=== PATIENT | female | born 1960 ===

== ENCOUNTER 2018-11-20 09:55 | Emergency (ER) | payer OTHER ==
[2018-11-20 10:14] VITALS: RESP 20; O2SAT 99
--- NOTE | 2018-11-20 10:28 | C.PDOC ---
History Of Present Illness 58 year old female presents to the ED complaining of increasing left sided "rib" pain status post slipping 2 weeks ago. Pt notes she was lifting her laundry, slipped and hit the wall with the left side of her chest. Reports the pain is worse with movement, specifically when moving the left arm. Notes no pain without movement. States she has been taking Aleve with complete transient relief. Denies any head injury, sob, leg swelling, back pain, changes in sensation, lower extremity weakness or pain, numbness, urinary symptoms, or any other associated complaints. PMD: Dr. Fabian Ojeda Time Seen by Provider: 11/20/18 10:15 Chief Complaint (Nursing): Back Pain History Per: Patient History/Exam Limitations: no limitations Onset/Duration Of Symptoms: Days Current Symptoms Are (Timing): Still Present Quality Of Discomfort: "Pain" Previous Symptoms: None Associated Symptoms: None Exacerbating Factor(s): Movement Recent travel outside of the [place]: No Past Medical History Reviewed: Historical Data, Nursing Documentation, Vital Signs Vital Signs: Last Vital Signs Temp 98 F 11/20/18 10:01 Pulse 77 11/20/18 10:01 Resp 20 11/20/18 10:01 BP 142/92 H 11/20/18 10:01 Pulse Ox 99 11/20/18 10:01 - Medical History PMH: No Chronic Diseases Other Surgeries: Tubal ligation Family History: States: No Known Family Hx - Social History Hx Alcohol Use: No Hx Substance Use: No - Immunization History Hx Tetanus Toxoid Vaccination: No Hx Influenza Vaccination: No Hx Pneumococcal Vaccination: No Review Of Systems Except As Marked, All Systems Reviewed And Found Negative. Constitutional: Negative for: Fever, Chills Cardiovascular: Positive for: Chest Pain Respiratory: Negative for: Shortness of Breath Genitourinary: Negative for: Dysuria, Hematuria Musculoskeletal: Positive for: Back Pain. Negative for: Leg Pain Neurological: Negative for: Weakness, Numbness Physical Exam - Physical Exam Appears: Non-toxic, No Acute Distress Skin: Warm, Dry, No Rash Head: Normacephalic Eye(s): bilateral: Normal Inspection, EOMI Nose: Normal Oral Mucosa: Moist Neck: Normal ROM, Supple Chest: Symmetrical, Tenderness (left lateral chest wall ) Cardiovascular: Rhythm Regular Respiratory: No Rales, No Rhonchi, No Wheezing, Other (Speaking full sentences) Gastrointestinal/Abdominal: Normal Exam, Soft, No Tenderness Back: No CVA Tenderness, No Decreased ROM Extremity: Normal ROM, No Pedal Edema Extremity: Bilateral: Atraumatic, Normal Color And Temperature, Normal ROM Neurological/Psych: Oriented x3, Normal Speech, Normal Cognition Gait: Steady ED Course And Treatment ECG: Interpreted By Me, Viewed By Me ECG Rhythm: Sinus Rhythm ECG Interpretation: No Acute Changes Rate From EC O2 Sat by Pulse Oximetry: 99 (RA) Pulse Ox Interpretation: Normal - Other Rad XR Chest/ribs X-Ray: Viewed By Me, Read By Radiologist Interpretation: Accession No. : [id number]. Patient Name / ID : BRIANNA LINDO / [id number]. Exam Date : 11/20/2018 10:26:03 ( Approved ). Study Comment : Sex / Age : F / 58Y. Creator : Amauri Johnson MD. Dictator : Amauri Johnson MD. Bankruptcy Legal Assistant : Venetian Blind Maker : Amauri Johnson MD. Approver2 : Report Date : 11/20/2018 13:39:17. My Comment : . Date of service: 11/20/2018. PROCEDURE: Radiographs of the Chest and Left Ribs. HISTORY: trauma. COMPARISON: 04/30/2014. TECHNIQUE: Frontal radiograph of the chest and multiple oblique radiographs of the left ribs were obtained. FINDINGS: LEFT RIBS: No fracture or focal lesion visualized. LUNGS: Clear. PLEURA: No pneumothorax or pleural fluid. CARDIOVASCULAR: Normal cardiac size. No pulmonary vascular congestion. No aortic atherosclerotic calcification present. OTHER FINDINGS: None. IMPRESSION: Unremarkable radiographs of the chest and left ribs. No left rib fracture. Progress Note: XR of ribs/chest ordered and reviewed. No fracture or dislocation. Case discussed with Dr. Dickson. Agreed with plan and discharge. Patient instructed to take Tylenol or Motrin for pain. Instructed to follow up with PMD in 1-2 days. Advised to return to the emergency department at any time if symptoms persist or worsen. Disposition - Disposition Referrals: Rusty Peralta MD [Medical Doctor] - Disposition: HOME/ ROUTINE Disposition Time: 11:21 Condition: GOOD Additional Instructions: Apply ice, take tylenol or motrin for the pain. Return to ER if symptoms persist or worsen. Follow up with Dr Peralta in 2 days. Instructions: Costochondritis (DC) Forms: [id number] (Polish) - Clinical Impression Clinical Impression: Chest wall contusion - PA / GEOPHYSICAL DATA TECHNICIAN / Resident Statement MD/DO has reviewed & agrees with the documentation as recorded. - Scribe Statement The provider has reviewed the documentation as recorded by the Scribe Roxanne Ferguson All medical record entries made by the Patrizia were at my direction and personally dictated by me. I have reviewed the chart and agree that the record accurately reflects my personal performance of the history, physical exam, medical decision making, and the department course for this patient. I have also personally directed, reviewed, and agree with the discharge instructions and disposition.
[2018-11-20 11:24] VITALS: BP 137/88; PULSE 64; TEMP 97.8
--- NOTE | 2018-11-20 13:42 | RAD ---
Date of service: 11/20/2018 PROCEDURE: Radiographs of the Chest and Left Ribs. HISTORY: trauma COMPARISON: 04/30/2014. TECHNIQUE: Frontal radiograph of the chest and multiple oblique radiographs of the left ribs were obtained. FINDINGS: LEFT RIBS: No fracture or focal lesion visualized. LUNGS: Clear. PLEURA: No pneumothorax or pleural fluid. CARDIOVASCULAR: Normal cardiac size. No pulmonary vascular congestion. No aortic atherosclerotic calcification present OTHER FINDINGS: None. IMPRESSION: Unremarkable radiographs of the chest and left ribs. No left rib fracture.
--- NOTE | 2018-11-22 08:38 | CARD ---
APPROVED REPORT Date of service: 11/20/2018 EKG Measurement Heart [id number] <Conclusion> Normal sinus rhythm Voltage criteria for left ventricular hypertrophy Abnormal ECG
== END 2018-11-20 11:26 | disposition home or self-care (01) ==
LOC: C.ER 09:55
DX: S20.219A Contusion of unspecified front wall of thorax, initial encounter (principal); W01.10XA Fall on same level from slipping, tripping and stumbling with subsequent striking against unspecified object, initial encounter